=== PATIENT | male | born 1960 | race Hispanic/Latino ===

== ENCOUNTER 2017-03-29 19:39 | Emergency (ER) | payer MEDICARE ==
[2017-03-29 19:44] VITALS: BP 149/94
--- NOTE | 2017-03-29 21:06 | Emergency Department Report ---
HPI - General Chief Complaint: Extremity Injury, Lower Time Seen by Provider: 03/29/17 21:00 - HPI HPI: he is a 56-year-old male presents to ED complaining of left ankle pain and swelling 1 day. Patient states he was walking down a hill when he tripped on his ankle and fell last night. Patient states the pain has gotten worse since then and since swelling. Patient describes pain as throbbing, aching, 10 out of 10 in intensity localized to his left ankle region. ED Past Medical Hx - Past Medical History Previous Medical History?: Yes Hx Hypertension: Yes Hx Heart Attack/AMI: Yes (1 stent) Hx Asthma: Yes Additional medical history: chronic back pain - Surgical History Past Surgical History?: Yes Additional Surgical History: left arm surgery - Social History Smoking Status: Current Every Day Smoker Substance Use Type: Alcohol - Medications Home Medications: Home Medications Medication Instructions Recorded Confirmed Last Taken Type Cyclobenzaprine [Flexeril] 10 mg PO BID PRN #24 tablet 03/29/17 Unknown Rx HYDROcodone/APAP 5-325 [[place] 1 each PO Q6HR PRN #20 tablet 03/29/17 Unknown Rx 5/325] Naproxen [Naprosyn] 500 mg PO BID #40 tablet 03/29/17 Unknown Rx ED Review of Systems ROS: Stated complaint: ANKLE INJURY Other details as noted in HPI Constitutional: denies: chills, fever Eyes: denies: eye pain, eye discharge, vision change ENT: denies: ear pain, throat pain Respiratory: denies: cough, shortness of breath, wheezing Cardiovascular: denies: chest pain, palpitations Endocrine: no symptoms reported Gastrointestinal: denies: abdominal pain, nausea, diarrhea Genitourinary: denies: urgency, dysuria Musculoskeletal: arthralgia, myalgia. denies: back pain, joint swelling Skin: denies: rash, lesions Neurological: denies: headache, weakness, paresthesias Psychiatric: denies: anxiety, depression Hematological/Lymphatic: denies: easy bleeding, easy bruising Physical Exam - Physical Exam Vital Signs: Vital Signs 03/29/17 03/29/17 19:43 19:51 Temperature 98.6 F 98.6 F Pulse Rate 96 H 96 H Respiratory 20 20 Rate Blood Pressure 149/94 Blood Pressure 149/94 [Right] O2 Sat by Pulse 98 96 Oximetry Physical Exam: GENERAL: Alert and oriented x3, no apparent distress, Normal Gait, atraumatic. HEAD: Head is normocephalic and a-traumatic. EYES: Extra ocular muscles are intact. Pupils are equal, round, and reactive to light and accommodation. EARS: symetrical, atraumatic, non tender, ear canal clear and moderate cerumen, tympanic membrance non inflamed. gross auditory nml bilaterally. NOSE: Nose symetrical, Nontender,Nares appeared normal. LUNGS: Symetrical with respiration, No wheezing, no rales or crackles, CTAB. HEART: S1, S2 present, regular rate and rhythm without murmur, no rubs, no gallops. Non tender to palpation EXTREMITIES/MUSCULOSKELETAL: No cyanosis, clubbing, rash, lesions or edema. Full ROM bilaterally. UE/LE Pulses 2+ bilaterally. Tenderness to palpation of the left lateral aspect of the ankle. Moderate swelling of the ankle joint. Pain with moderate flexion and extension of the foot. NEUROLOGIC: The patient is cooperative with no focal neurologic deficits. Cranial nerves II through XII are grossly intact. Normal speech. Normal sensation in bilateral ulower extremities, SKIN: Warm and dry, No lesions, No ulceration or induration present. ED Course Vital Signs 03/29/17 03/29/17 19:43 19:51 Temperature 98.6 F 98.6 F Pulse Rate 96 H 96 H Respiratory 20 20 Rate Blood Pressure 149/94 Blood Pressure 149/94 [Right] O2 Sat by Pulse 98 96 Oximetry ED Medical Decision Making - Radiology Data Radiology results: report reviewed, image reviewed FINAL REPORT PROCEDURE: XR ANKLE 3+V LT TECHNIQUE: LEFT ankle radiographs, AP, lateral, and oblique views. CPT 46893 HISTORY: injury, swelling cannot bare weight COMPARISON: No prior studies are available for comparison. FINDINGS: Fracture (s) and/or Dislocation(s): Oblique fracture of the distal fibula. Ossification inferior to the medial malleolus with suggesting prior injury. Alignment: Normal. Joint space(s): Normal. Soft tissues: Swelling. Bone mineralization: Normal. Foreign bodies: None. Calcaneal spurring: Dorsal heel spur. IMPRESSION: Distal fibular fracture. Transcribed By: GEETA Dictated By: BEVERLY RUTLEDGE MD Electronically Authenticated By: BEVERLY RUTLEDGE MD Signed Date/Time: 03/29/172219 - Medical Decision Making 56-year-old male presents with fracture of the distal fibula X-ray of the ankle ordered Patient received 4 mg of IV Motrin for pain Mode posterior OCL splint applied prior to discharge Patient was discharged with crutches and instructions. Disposition follow-up with Dr. Correa orthopedic doctor as soon as possible. Vital signs are stable patient is in no acute distress. Examination after splint application was normal no neurovascular deficits. Critical care attestation.: If time is entered above; I have spent that time in minutes in the direct care of this critically ill patient, excluding procedure time. ED Disposition Clinical Impression: Fracture of fibula, left, closed Qualifiers: Encounter type: initial encounter Fibula location: proximal Disposition: TO HOME OR SELFCARE Is pt being admited?: No Does the pt Need Aspirin: No Condition: Stable Instructions: Ankle Sprain (ED), Leg Fracture (ED), Crutch Instructions (ED), Ankle Exercises (GEN), RICE Therapy (ED) Additional Instructions: Follow-up instructions given. Make sure follow-up with orthopedic. Prescriptions: Cyclobenzaprine [Flexeril] 10 mg PO BID PRN #24 tablet PRN Reason: Muscle Spasm HYDROcodone/APAP 5-325 [[place] 5/325] 1 each PO Q6HR PRN #20 tablet PRN Reason: Pain Naproxen [Naprosyn] 500 mg PO BID #40 tablet Referrals: PRIMARY CAREMD [Primary Care Provider] - 3-5 Days OLEGARIO CORREA MD [Staff Physician] - 3-5 Days [facility] [Outside] - 3-5 Days Time of Disposition: 22:27
[2017-03-29] MEDS ORDERED: MORPHINE IV ONE (21:19)
--- NOTE | 2017-03-29 22:26 | XRay Report ---
FINAL REPORT PROCEDURE: XR ANKLE 3+V LT TECHNIQUE: LEFT ankle radiographs, AP, lateral, and oblique views. CPT 78273 HISTORY: injury, swelling cannot bare weight COMPARISON: No prior studies are available for comparison. FINDINGS: Fracture (s) and/or Dislocation(s): Oblique fracture of the distal fibula. Ossification inferior to the medial malleolus with suggesting prior injury. Alignment: Normal. Joint space(s): Normal. Soft tissues: Swelling. Bone mineralization: Normal. Foreign bodies: None. Calcaneal spurring: Dorsal heel spur. IMPRESSION: Distal fibular fracture.
[2017-03-29] MEDS ORDERED: PERCOCET 5/325 ONE (22:29)
[2017-03-29] MEDS ORDERED: PERCOCET 5/325 PO ONE (22:30)
[2017-03-29] MEDS ORDERED: BENADRYL PO ONE ×2 (22:30→22:31)
== END 2017-03-29 23:10 | disposition home or self-care (01) ==
LOC: ED 19:39
DX: S82.402A Unspecified fracture of shaft of left fibula, initial encounter for closed fracture (principal); I10 Essential (primary) hypertension; I25.2 Old myocardial infarction; J45.909 Unspecified asthma, uncomplicated; F17.210 Nicotine dependence, cigarettes, uncomplicated; W17.89XA Other fall from one level to another, initial encounter; Y93.01 Activity, walking, marching and hiking; Y92.828 Other wilderness area as the place of occurrence of the external cause; Y99.8 Other external cause status
CPT/HCPCS: 29515; 73610; 96374; 99284; J2270

== ENCOUNTER 2017-08-17 16:34 | Outpatient (CLI) | payer MEDICARE ==
--- NOTE | 2017-08-18 10:07 | XRay Report ---
FINAL REPORT EXAM: XR TIBIA FIBULA 2V LT HISTORY: OLD FX LT TIBIA... LEG PAIN TECHNIQUE: Left tibia and fibula. PRIORS: Ankle radiographs of 03/19/2017 FINDINGS: There is an oblique distal fibular fracture which is best seen on the lateral image. There is some callus but fracture remains incompletely healed with a persistent clearly visible fracture line. There is a tiny osseous density adjacent to the medial malleolus which is unchanged. The proximal tibia and fibula are intact. IMPRESSION: There a an incompletely healed fracture of distal fibula.
== END 2017-08-17 16:35 | disposition home or self-care (01) ==
LOC: XRAY 16:34
PROVIDERS: ATTEND Orthopaedic Surgery
DX: S82.492 Other fracture of shaft of left fibula (principal); I11.0 Hypertensive heart disease with heart failure; I50.9 Heart failure, unspecified; F17.200 Nicotine dependence, unspecified, uncomplicated; X58.XXXD Exposure to other specified factors, subsequent encounter

== ENCOUNTER 2017-11-19 15:32 | Emergency (ER) | payer MEDICARE ==
[2017-11-19 15:48] VITALS: BP 102/66
[2017-11-19] MEDS ORDERED: ASPIRIN PO ONE (15:48)
[2017-11-19 16:36] LABS: BUN/Creatinine Ratio 16; Blood Urea Nitrogen 16 mg/dL (9-20); Calcium 8.4 mg/dL (8.4-10.2); Hemolysis Index 24
[2017-11-19 16:54] LABS: Chol/HDL Ratio 22.71 %; HDL Cholesterol 7 mg/dL (40-59); LDL Cholesterol,Direct TNR mg/dL (50-130)
== END 2017-11-19 18:00 | disposition left against medical advice (07) ==
LOC: ED 15:32
DX: R07.89 Other chest pain (principal); Z53.21 Procedure and treatment not carried out due to patient leaving prior to being seen by health care provider
CPT/HCPCS: 36415; 80048; 80061; 84484; 93005; 93010

== ENCOUNTER 2018-04-28 10:05 | Day surgery (SDC) | payer MEDICARE ==
[2018-04-28 10:46] LABS: Basophils # (Auto) 0.1 K/mm3 (0.0-0.1); Basophils % (Auto) 0.9 % (0.0-1.8); Eosinophils # (Auto) 0.4 K/mm3 (0.0-0.4); Hematocrit 38.7 % (35.5-45.6); Hemoglobin 13.7 gm/dl (11.8-15.2); Lymphocytes # (Auto) 3.1 K/mm3 (1.2-5.4); Lymphocytes % (Auto) 39.2 % (13.4-35.0); Mean Corpuscular HGB Conc 35 % (32-34); Mean Corpuscular Hemoglobin 32 pg (28-32); Mean Corpuscular Volume 92 fl (84-94); Monocytes # (Auto) 0.8 K/mm3 (0.0-0.8); Monocytes % (Auto) 10.4 % (0.0-7.3); Platelet Count 208 K/mm3 (140-440); Red Blood Count 4.23 M/mm3 (3.65-5.03); Red Cell Distribution Width 12.6 % (13.2-15.2)
[2018-04-28 11:00] LABS: BUN/Creatinine Ratio 20; Blood Urea Nitrogen 22 mg/dL (9-20); Calcium 8.9 mg/dL (8.4-10.2); Hemolysis Index 17
[2018-04-28 11:03] LABS: INR 0.88 (0.87-1.13)
[2018-04-28] MEDS: NACL 0.9% 500 ML 500 ML IV SCH ×2 (11:27→12:30)
[2018-04-28] MEDS ORDERED: HEPARIN/NS 5000 UNIT/500ML(CATH LAB) 1,000 ML IR ONE (11:52)
[2018-04-28] MEDS ORDERED: XYLOCAINE 2% INFILTRATI ONE (11:53)
[2018-04-28] MEDS ORDERED: SUBLIMAZE ONE (11:53)
[2018-04-28] MEDS ORDERED: NITROGLYCERIN SYRINGE 3 ML ONE (11:53)
[2018-04-28] MEDS ORDERED: CALAN ONE (11:53)
[2018-04-28] MEDS ORDERED: VERSED ONE (11:53)
[2018-04-28] MEDS ORDERED: NORCO 5/325 PO PRN (12:11)
[2018-04-28 12:29] LABS: Partial Thromboplastin Time 28.4 Sec. (24.2-36.6)
[2018-04-28] MEDS: HEPARIN 10,000 UNITS/10 ML ONE ×2 (12:33→12:34)
[2018-04-28] MEDS ORDERED: NACL 0.9% 1000 ML 1,000 ML IV SCH (13:00)
[2018-04-28] MEDS ORDERED: PLAVIX PO SCH (14:00)
[2018-04-28 15:40] VITALS: BP 102/56
--- NOTE | 2018-05-03 19:09 | Cardiac Catherization Report ---
LEFT HEART CATHETERIZATION INDICATION: The patient with known coronary artery disease, who developed increasing exertional chest pain suspicious for accelerating angina. PROCEDURE DESCRIPTION: The patient was prepped in the usual sterile fashion. Access was obtained through the right radial artery without complication. A 5-Yoruba femoral sheath was placed into the right radial artery without difficulty. A TIG catheter was used to engage the right and left coronaries. A pigtail catheter was used for the left ventriculogram. There were no complications. A TR band was used for hemostasis. CORONARY ANATOMY: 1. Left main: The left main is free of significant disease and bifurcates into the left anterior descending and circumflex arteries. 2. The left anterior descending has a stent in the mid segment that is widely patent without any significant restenosis. Right before the location of the stent, there is mild nonobstructive disease of 20-30%. Right after the stent, there was mild nonobstructive disease of 20-30%. 3. The circumflex has mild luminal irregularities less than 20%. There were no focal obstructions. 4. Right coronary artery is dominant. There is ostial to proximal disease of 40-50%. This area is nonobstructive. The mid segment has 10-20% luminal irregularities. The distal posterolateral branch after the bifurcation of the distal right into the posterolateral and posterior descending has moderate 60-70% disease. This is the most significant lesion; however, it appears to be non-flow limiting. LEFT VENTRICULOGRAM: The end diastolic filling pressure is 22. Aortic pressure is 134/75. Upon pullback, there was no gradient across the aortic valve. The left ventricular wall motion appears to be normal. The estimated ejection fraction 50-55%. ESTIMATED BLOOD LOSS: Minimal. SPECIMENS: None. CONCLUSIONS: 1. Continued patency of a mid LAD stent. 2. Mild nonobstructive disease involving the remaining segments of the LAD and circumflex. 3. Moderate distal disease involving the posterolateral branch of the right coronary artery. This disease is estimated between 60% and 70%. PLAN: Based on the films, I recommend medical therapy. The patient will be started on antiplatelet therapy. Of most importance is his need to quit smoking. We will reassess him in the office and determine if we need to perform a nuclear stress imaging study to assess the ischemic threshold of the distal right lesion. Based on the findings today, I believe medical therapy should be initially tried. JOB# [id number] GP/NTS
== END 2018-04-28 15:45 | disposition home or self-care (01) ==
LOC: CATHLABREC 10:05
PROVIDERS: ATTEND Internal Medicine Cardiovascular Disease
DX: I25.10 Atherosclerotic heart disease of native coronary artery without angina pectoris (principal); R06.02 Shortness of breath; F17.210 Nicotine dependence, cigarettes, uncomplicated; I10 Essential (primary) hypertension; E78.5 Hyperlipidemia, unspecified; I25.2 Old myocardial infarction; E78.00 Pure hypercholesterolemia, unspecified; J43.9 Emphysema, unspecified; K21.9 Gastro-esophageal reflux disease without esophagitis; M19.90 Unspecified osteoarthritis, unspecified site; F31.9 Bipolar disorder, unspecified; Z82.49 Family history of ischemic heart disease and other diseases of the circulatory system; Z79.899 Other long term (current) drug therapy; Z80.8 Family history of malignant neoplasm of other organs or systems; Z98.890 Other specified postprocedural states
CPT/HCPCS: 36415; 80048; 85025; 85610; 85730; 93005; 93010; 93458; 99156; 99157; C1887; C1894; J1644; J2250; J3010; J7040; Q9967